=== PATIENT | male | born 1985 | race Caucasian/White ===

== ENCOUNTER 2017-06-05 15:28 | Emergency (ER) | payer OTHER ==
[~2017-06-05 15:28] MED LIST: NS 1000 ML 1,000 ML ONE
--- NOTE | 2017-06-05 15:36 | DR.GENAD ---
HPI - PCP Primary Care Physician: DR. RUST - HPI Comment HPI Comment: PATIENT DENIES HEADACHE, WEAKNESS, SPEECH DISTURBANCES OR DIZZINESS. NO FEVER, N/V OR DYSURIA. NO ABDOMINAL PAIN. DENIES TRAUMA. HAVE NOT TAKING MENTAL HEALTH MEDS, WAS AT THE DRUG STORE TO GET HIS MEDICATION. TOOK MED IN ED GIVEN TO HIM BY HIS MOM. - Complaint/Symptoms Chief Complaint Doctors Comments: PATIENT TOOK HIS BP AT THE DRUG STORE, CALL EMS THAT HE IS HAVING A STROKE. Chief Complaint:: PATIENT STATED THAT HE WAS AT [facility] [employer] AND STARTED FEELING LIKE HE WAS HAVING A STROKE. - Nurses notes reviewed Nurses Notes Review: Yes - Source History Provided: Patient - Mode of Arrival Mode of Arrival: Ambulatory - Timing Onset of Chief Complaint: 06/05/17 Came on: Suddenly - Duration Duration: Constant Duration: Minutes - Severity Severity: Moderate PMH - PMH Past Medical History: Yes Past Medical History: Depression, Schizophrenia Past Surgical History: No - Family History History of Family Medical Conditions: No - Social History Does patient currently use any type of tobacco product: No Have you used tobacco products in the last 12 months: No Type of Tobacco Use: None Does any household member use tobacco: No Alcohol Use: None Do you use any recreational Drugs:: Yes (THC) Lives With: Family Lives Where: Home - infectious screening In the last 2 months have you had wt loss of >10#?: NO Have you had fever, night sweats or hemotysis?: No Have you traveled outside the country in the last 6 months?: No Isolation: Standard ROS - Review of Systems Constitutional: No Symptoms Reported Eyes: No Symptoms Reported ENTM: No Symptoms Reported Respiratoy: No Symptoms Reported Cardiovascular: Chest Pain, Palpitations Gastrointestinal/Abdominal: No Symptoms Reported Genitourinary: No Symptoms Reported Neurological: No Symptoms Reported Musculoskeletal: No Symptoms Reported Integumentary: No Symptoms Reported Hematologic/Lymphatic: No Symptoms Reported Endocrine: No Symptoms Reported Psychiatric: Other (PARANOID SCHIZOPHRENIA PATIENT) All Other Systems: Reviewed and Negative PE - Vital Signs Vitals: Pulse Rate 119 Respiratory Rate 20 Blood Pressure 162/99 O2 Sat by Pulse Oximetry 98 - General Limitations: No Limitations General Appearance: Alert - Head Head Exam: Normal Inspection - Eyes Eye exam: Normal Appearance - ENT ENT Exam: Normal Exam External Ear Exam: Normal External Inspection TM/Canal Exam: Bilateral Normal Nose Exam: Normal Nose Exam Mouth Exam: Normal Inspection Throat Exam: Normal Inspection - Neck Neck Exam: Normal Inspection - Chest Chest Inspection: Symmetric Chest Wall Rise - Respiratory Respiratory Exam: Normal Lung Sounds Bilat Respiratory Exam: Bilateral Clear to Auscultation - Cardiovascular Cardiovascular Exam: Tachycardia, Normal Heart Sounds - Abdominal Exam Abdominal Exam: Normal Bowel Sounds, Soft. negative: Tenderness - Extremities Extremities Exam: Normal Inspection - Back Back Exam: Normal Inspection - Neurologic Neurological Exam: Alert, Oriented X3 - Psychiatric Psychiatric Exam: Anxious - Skin Skin Exam: Dry MDM - Differential Diagnosis Differential Diagnosis: DEHYDRATION, TACHYCARDIA, SCHIZOPHRENIA Course - Treatment Treatment: SEE ORDERS. NS 1L IN ED. PATIENT FEELING BETTER. - Education/Counseling Education/Counseling: Patient, Family, Education Educated On: Treatment, Diagnosis, Needs for Follow Up ROR - Labs Reviewed Laboratory Results Reviewed?: Yes Result Diagrams: 06/05/17 15:43 06/05/17 15:43 Laboratory: WBC 5.9 X10^3/uL (3.6-10.0) 06/05/17 15:43 RBC 4.41 X10^6/uL (4.7-6.0) L 06/05/17 15:43 Hgb 13.1 g/dL (13.5-18.0) L 06/05/17 15:43 Hct 37.2 % (42.0-54.0) L 06/05/17 15:43 MCV 84.4 fL (80.0-100.0) 06/05/17 15:43 MCH 29.7 pg (27.0-34.0) 06/05/17 15:43 MCHC 35.1 g/dL (33.0-35.0) H 06/05/17 15:43 RDW 13.0 % (11.6-16.5) 06/05/17 15:43 Plt Count 303 X10^3/uL (150.0-450.0) 06/05/17 15:43 MPV 7.1 fL (7.4-11.0) L 06/05/17 15:43 Neut % 57.9 % (42.0-75.0) 06/05/17 15:43 Lymph % 28.6 % (21.0-51.0) 06/05/17 15:43 [place] % 12.3 % (0.0-13.0) 06/05/17 15:43 Eos % 0.5 % (0.9-2.9) L 06/05/17 15:43 Baso % 0.7 % (0.2-1.0) 06/05/17 15:43 Neut # 3.4 x10^3/uL (2.2-4.8) 06/05/17 15:43 Lymph # 1.7 X10^3/uL (1.3-2.9) 06/05/17 15:43 [place]es # 0.7 x10^3/uL (0.3-0.8) 06/05/17 15:43 Eos # 0.0 x10^3/uL (0.0-0.2) 06/05/17 15:43 Baso # 0.0 X10^3/uL (0.0-0.1) 06/05/17 15:43 Absolute Nucleated RBC 0.0 /100WBC 06/05/17 15:43 Sodium 127 mmol/L (136-145) L 06/05/17 15:43 Corrected Sodium 128 mmol/L (136-145) L 06/05/17 15:43 Potassium 3.8 mmol/L (3.5-5.1) 06/05/17 15:43 Chloride 95 mmol/L (98-107) L 06/05/17 15:43 Carbon Dioxide 24.8 mmol/L (21-32) 06/05/17 15:43 BUN 4 mg/dL (7-18) L 06/05/17 15:43 Creatinine 0.94 mg/dL (0.70-1.30) 06/05/17 15:43 Est GFR (MDRD) Af Amer > 60 (>60) 06/05/17 15:43 Est GFR (MDRD) Non-Af > 60 (>60) 06/05/17 15:43 Glucose 144 mg/dL (65-99) H 06/05/17 15:43 Calcium 8.4 mg/dL (8.5-10.1) L 06/05/17 15:43 Corrected Calcium TNP 06/05/17 15:43 Total Bilirubin 0.30 mg/dL (0.2-1.0) 06/05/17 15:43 AST 20 Units/L (15-37) 06/05/17 15:43 ALT 38 Units/L (12-78) 06/05/17 15:43 Alkaline Phosphatase 97 Units/L (46-116) 06/05/17 15:43 Creatine Kinase 77 Units/L (39-308) 06/05/17 15:43 CK-MB (CK-2) < 1.0 ng/mL (0-4.0) 06/05/17 15:43 CK/CKMB % Calc 1.3 % (<4) 06/05/17 15:43 Troponin I < 0.02 ng/mL (0-1.5) 06/05/17 15:43 Total Protein 7.1 g/dL (6.4-8.2) 06/05/17 15:43 Albumin 3.6 g/dL (3.4-5.0) 06/05/17 15:43 Globulin 3.5 g/dL (2.5-4.5) 06/05/17 15:43 Albumin/Globulin Ratio 1.0 Ratio (1.1-2.1) L 06/05/17 15:43 Specimen Type Clean catch urine 06/05/17 16:41 Urine Color Yellow (YELLOW) 06/05/17 16:41 Urine Appearance Clear (CLEAR) 06/05/17 16:41 Urine pH 7.0 (5.0 - 8.0) 06/05/17 16:41 Ur Specific [place] 1.010 (1.000-1.030) 06/05/17 16:41 Urine Protein Negative (NEGATIVE) 06/05/17 16:41 Urine Glucose (UA) Negative (NEGATIVE) 06/05/17 16:41 Urine Ketones Negative (NEGATIVE) 06/05/17 16:41 Urine Occult Blood Negative (NEGATIVE) 06/05/17 16:41 Urine Nitrite Negative (NEGATIVE) 06/05/17 16:41 Urine Bilirubin Negative (NEGATIVE) 06/05/17 16:41 Urine Urobilinogen Normal (NORMAL) 06/05/17 16:41 Ur Leukocyte Esterase Negative (NEGATIVE) 06/05/17 16:41 Urine RBC 0-1 /HPF (NEGATIVE) 06/05/17 16:41 Urine WBC None seen /HPF (NEGATIVE) 06/05/17 16:41 Ur Squamous Epith Cells Rare /HPF (NEGATIVE) 06/05/17 16:41 Amorphous Sediment Trace /HPF (NEGATIVE) 06/05/17 16:41 Urine Bacteria Negative /HPF (NEGATIVE) 06/05/17 16:41 Ur Culture Indicated? No/not indicated 06/05/17 16:41 - XRAY XRAY Interpreted by: Radiologist XRAY Findings: RPORT DISCUSS WITH PATIENT. - EKG Rhythm: ST (EKG NOTED) - Diagnosis Discharge Problem: Dehydration, Hyponatremia - Discharge Plan Disposition: 01 HOME, SELF-CARE Condition: Stable - Follow ups/Referrals Follow ups/Referrals: NFD,None [Primary Care Provider] - 3 days - Instructions Instructions: Hyponatremia, [id number], Dehydration, Adult, [id number] Additional Instructions: RETURN TO ED IF WORSE.
[2017-06-05 15:47] VITALS: BP 162/99; BMI 24.5
[2017-06-05 15:51] LABS: BASOPHILS % (AUTO) 0.7 % (0.2-1.0); EOSINOPHILS % (AUTO) 0.5 % (0.9-2.9); HEMATOCRIT 37.2 % (42.0-54.0); HEMOGLOBIN 13.1 g/dL (13.5-18.0); LYMPHOCYTES # (AUTO) 1.7 X10^3/uL (1.3-2.9); LYMPHOCYTES % (AUTO) 28.6 % (21.0-51.0); MEAN CORPUSCULAR HEMOGLOBIN 29.7 pg (27.0-34.0); MEAN CORPUSCULAR HGB CONC 35.1 g/dL (33.0-35.0); MEAN CORPUSCULAR VOLUME 84.4 fL (80.0-100.0); MEAN PLATELET VOLUME 7.1 fL (7.4-11.0); MONOCYTES # (AUTO) 0.7 x10^3/uL (0.3-0.8); MONOCYTES % (AUTO) 12.3 % (0.0-13.0); NEUTROPHILS # (AUTO) 3.4 x10^3/uL (2.2-4.8); NEUTROPHILS % (AUTO) 57.9 % (42.0-75.0); PLATELET COUNT 303 X10^3/uL (150.0-450.0); RED BLOOD COUNT 4.41 X10^6/uL (4.7-6.0); WHITE BLOOD COUNT 5.9 X10^3/uL (3.6-10.0)
[2017-06-05 16:15] LABS: ALANINE AMINOTRANSFERASE 38 Units/L (12-78); ALBUMIN 3.6 g/dL (3.4-5.0); ALKALINE PHOSPHATASE 97 Units/L (46-116); ASPARTATE AMINO TRANSFERASE 20 Units/L (15-37); BLOOD UREA NITROGEN 4 mg/dL (7-18); CALCIUM 8.4 mg/dL (8.5-10.1); CARBON DIOXIDE 24.8 mmol/L (21-32); CHLORIDE 95 mmol/L (98-107); CKMB % 1.3 % (<4); COR NA(FOR HYPERGLY) 128 mmol/L (136-145); CREATINE KINASE 77 Units/L (39-308); CREATINE KINASE MB < 1.0 ng/mL (0-4.0); CREATININE 0.94 mg/dL (0.70-1.30); SODIUM 127 mmol/L (136-145); TOTAL PROTEIN 7.1 g/dL (6.4-8.2); TROPONIN I < 0.02 ng/mL (0-1.5); eGFR BLACK RACES > 60 (>60); eGFR NON BLACK RACES > 60 (>60)
[2017-06-05 16:57] LABS: BILIRUBIN,URINE NEGATIVE (NEGATIVE); BLOOD/HEMOGLOBIN,URINE NEGATIVE (NEGATIVE); GLUCOSE, URINE NEGATIVE (NEGATIVE); KETONES,URINE NEGATIVE (NEGATIVE); LEUKOCYTE ESTERASE ,URINE NEGATIVE (NEGATIVE); NITRITES,URINE NEGATIVE (NEGATIVE); PROTEIN,URINE NEGATIVE (NEGATIVE); UROBILINOGEN,URINE NORMAL (NORMAL)
[2017-06-05 17:09] LABS: AMORPHOUS SEDIMENT,UR TRACE /HPF (NEGATIVE); APPEARANCE,URINE CLEAR (CLEAR); BACTERIA,URINE NEGATIVE /HPF (NEGATIVE); COLOR,URINE YELLOW (YELLOW); RBC,URINE 0-1 /HPF (NEGATIVE); SQUAMOUS EPITHELIAL CELL,UR RARE /HPF (NEGATIVE)
== END 2017-06-05 18:35 | disposition home or self-care (01) ==
LOC: ER 15:39
DX: E87.1 Hypo-osmolality and hyponatremia (principal); E86.0 Dehydration
CPT/HCPCS: 36415; 71010; 80053; 81001; 82550; 82553; 84484; 85025; 93005; 93010; 96365; 99283